=== PATIENT | male | born 1980 | race Two or more races ===

== ENCOUNTER 2025-05-29 15:36 | Emergency (ER) | payer MEDICAID, SELFPAY ==
[2025-05-29 15:37] VITALS: BMI 34.9
[2025-05-29 15:55] VITALS: BP 176/95; PULSE 82; RESP 20; TEMP 36.6; O2SAT 97
--- NOTE | 2025-05-29 16:04 | PD.EDBACK ---
ED Back Injury Pain RME/HPI General Chief Complaint: Back Pain/Injury Stated Complaint: L) LEG SWELLING Time Seen by Provider: 05/29/25 15:41 Arrival date/time: 05/29/25 15:36 RME / HPI RME / HPI Narrative: 45-year-old male with past medical history of diabetes, hypertension presents to the ER after twisting his left knee 3 weeks ago and now complaining of edema and swelling to his left lower leg. 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 Denies numbness, tingling, fever, weakness. Related Data Home Medications ?Medication ?Instructions ?Recorded ?Confirmed amlodipine 10 mg tablet 10 mg PO DAILY 03/22/19 10/09/22 ibuprofen 800 mg tablet 800 mg PO TID PRN Pain 03/22/19 10/09/22 Held on 10/09/22. Instructions: Resume on 10/12/22. lisinopril 10 mg tablet 10 mg PO DAILY 09/17/22 10/09/22 metformin 1,000 mg tablet 1,000 mg PO BID 09/17/22 10/09/22 Previous Rx's ?Medication ?Instructions ?Recorded hydrocodone 5 mg-acetaminophen 325 1 tab PO Q6H PRN pain #14 tabs 03/23/19 mg tablet ([place]) naproxen 500 mg tablet 500 mg PO BID PRN pain #14 tabs 05/29/25 Allergies Allergy/AdvReac Type Severity Reaction Status Date / Time No Known Allergies Allergy Verified 05/29/25 15:39 ED Exam Narrative Physical exam: Constitutional: Vital Signs Reviewed. Well appearing. No acute distress. Not toxic appearing. Head: Normocephalic, atraumatic. Eyes: Conjunctiva clear. ENT: Mucous membranes moist. Neck: Trachea midline. Normal range of motion. No nuchal rigidity. Respiratory: Normal effort. No respiratory distress or accessory muscle use. Neuro: Alert and oriented. Speech normal. No focal gross motor or sensory deficits observed. Skin: Warm, dry, normal color. Left lower extremity: Positive tenderness to palpation medial joint line of left knee. Negative anterior posterior drawer of left knee and no effusion. Minimal limited range of motion and strength 4+ out of 5 secondary to pain for the left knee. Patient additionally has trace edema of his left lower leg. Dorsalis pedis pulse 2+ regular rate and rhythm. Full range of motion, strength 5 out of 5 his sensation tact light touch for left ankle. Compartments are soft for left lower extremity. Negative erythema, severe warmth, ecchymosis. Psych: Pleasant. Normal affect. Cooperative. Course Quality Measures none Orders Category Date Time Status Crutches .NOW Care 05/29/25 16:09 Active US venous duplex LE LT Stat Exams 05/29/25 16:08 Completed XR knee comp LT 4V Stat Exams 05/29/25 16:08 Completed Ketorolac Inj [Toradol Inj] Med 05/29/25 16:08 Discontinued 30 mg IM X1 ONE Vital Signs Vital signs: Vital Signs Temperature 97.9 F 05/29/25 15:55 Pulse Rate 82 05/29/25 15:55 Respiratory Rate 20 05/29/25 15:55 Blood Pressure 176/95 H 05/29/25 15:55 Pulse Oximetry (%) 97 05/29/25 15:55 Oxygen Delivery Method Room Air 05/29/25 15:55 Back Pain / Injury MDM Narrative MDM Narrative:: MDM: This patient has been diagnosed with an internal knee derangement with small effusion and cannot exclude an additional soft tissue injury concerning for contusion vs strain vs sprain vs occult f/x or dislocation that does not have neurovascular compromise. X-ray without gross fracture or dislocation. Ultrasound without DVT. There is no infectious e/o. Patient instructions include the recommendation to decrease activities, be weight bearing as tolerated, and to ice and elevate the injured limb. I plan to offer patient a knee immobilizer, crutches weightbearing as tolerated as well. Extremity remains DNVI with soft compartments at time of discharge. Patient to follow-up with PMD and orthopedics in 1 to 2 days, strict ER return precautions advised Patient data External records reviewed:: None Clinical information provided by:: patient Social determinants that could affect healthcare access:: none Patient has the following chronic illnesses:: As noted How is presenting disease/condition affected by chronic disease/condition?: no chronic disease Evaluation data The following diagnostics were reviewed and interpreted by me:: radiology exam(s) Lab and/or radiology exams considered but not ordered:: Labs and radiology considered, but not ordered as they were not clinically indicated at this time. Interpretation Summary: As noted Medications / Prescriptions Medications or Prescriptions considered but not ordered:: I considered prescription management (both outpatient prescriptions AND drug treatment in the ER) and decided that this was necessary and was prescribed as charted. Medication administrations:: Medication Administration History Discontinued Medications Ketorolac Tromethamine (Ketorolac Inj 30 Mg/Ml Vial) 30 mg IM X1 ONE Stop: 05/29/25 16:09 Last Admin: 05/29/25 16:25 Dose: 30 mg Documented By: LP As noted Consultations Consultation(s) initiated? 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 Discharge instructions specifically effects, indications for sooner follow up or return to the emergency department, and the expected course of current diagnosis. Patient condition: Stable Discharge Plan Plan Patient Disposition: HOME (Self Care) Patient condition on transfer: Stable Prescriptions/Referrals Prescriptions/Med Rec: New naproxen 500 mg tablet 500 mg PO BID PRN (Reason: pain) Qty: 14 0RF Rx Instructions: take with food and 8 oz of water No Action ibuprofen 800 mg Tablet 800 mg PO TID PRN (Reason: Pain) amlodipine 10 mg Tablet 10 mg PO DAILY hydrocodone-acetaminophen [[place]] 5-325 mg tablet 1 tab PO Q6H MDD 4 PRN (Reason: pain) Qty: 14 0RF metformin 1,000 mg tablet 1,000 mg PO BID lisinopril 10 mg tablet 10 mg PO DAILY Patient Comments: TAKE 1 TABLET BY MOUTH EVERY DAY Referrals: No Primary/Family,Physician [Primary Care Provider] - In 1 week Problem List Clinical Impression: Internal derangement of knee, Acute leg pain Patient/Caregiver Discharge Instructions Education Materials: ED Knee Sprain Additional Instructions: Follow up with your primary medical doctor and an orthopedic doctor within 24 hours. Return to the Emergency Room immediately for any new, worsening, continuing symptoms or any concerns at all. Return to the Emergency Room within 24 hours if you are unable to follow up with your primary medical doctor and an orthopedic doctor within 24 hours. Print Language: [place] Stand Alone Forms: Jessi Award Info., Patient Portal Info Letter AUGUSTO/KIRSTIN Supervising Physician AUGUSTO/KIRSTIN Supervising Physician: Dr. Chavez
--- NOTE | 2025-05-29 16:08 | XR_ITS ---
Examination: Duplex scan of the lower extremity, unilateral left complete Date and time of exam: May 29, 2025, 1627 hours INDICATIONS: Left leg swelling and pain beginning 1 month ago Technique: Duplex scan of the extremity veins using B-mode/grayscale imaging and Doppler spectral analysis and color flow Attention is directed to internal echogenicity, compression and augmentation involving these veins, color flow assessment, spectral analysis Findings: Major deep venous structures in the extremity demonstrate normal course and caliber. There is no evidence of deep vein thrombosis. Normal color flow and spectral analysis Impression: Negative for DVT..
--- NOTE | 2025-05-29 16:08 | XR_ITS ---
Examination: Knee, left, 3 views Technique: Knee AP, lateral, oblique 3 views Date and time of exam: May 29, 2025, 1609 hours INDICATIONS: Injury 1 month ago, patient heard a loud pop in the knee followed by pain and swelling FINDINGS: No fracture or dislocation Small knee effusion IMPRESSION: No fracture or dislocation
[2025-05-29] MEDS: KETOROLAC INJ 30 MG/ML VIAL IM (16:25)
--- NOTE | 2025-05-29 20:16 | PC.NURSE ---
CALLED PT OUTSIDE AND ER LOBBY AND NO ANSWER
== END 2025-05-29 20:10 | disposition home or self-care (01) ==
PROVIDERS: Emergency Provider Emergency Medicine
DX: M23.92 Unspecified internal derangement of left knee (principal); E11.9 Type 2 diabetes mellitus without complications; I10 Essential (primary) hypertension
CPT/HCPCS: 29505; 73564; 93971; 96372; 99284; J1885